=== PATIENT | female | born 1950 | race African-American/Black ===

== ENCOUNTER 2023-02-05 15:08 | Emergency (ER) | payer OTHER, BC ==
[2023-02-05 15:28] VITALS: BP 126/85; PULSE 69; RESP 20; TEMP 98.5; BMI 22.7
[2023-02-05 16:23] LABS: HEMATOCRIT 41.4 % (32.4-45.2); HEMOGLOBIN 13.7 G/dL (10.7-15.3); MCH 31.2 pg (25.7-33.7); MEAN CELL VOLUME 94.5 fl (80-96); MEAN PLT VOLUME 7.8 fl (7.5-11.1); RBC 4.38 10^6/uL (3.60-5.2); RDW 14.3 % (11.6-15.6); WHITE BLOOD COUNT 3.9 10^3/uL (4.0-10.8)
[2023-02-05 16:36] LABS: ALBUMIN 3.8 g/dl (3.4-5.0); CALCIUM 9.7 mg/dl (8.5-10); POTASSIUM 3.8 mmol/L (3.5-5.1); TOT PROT 6.3 g/dl (6.4-8.2)
[2023-02-05] MEDS ORDERED: ASPIRIN 81 MG CHEWABLE TABLETS PO ONE (17:29)
[2023-02-05] MEDS ORDERED: ASPIRIN 81 MG CHEWABLE TABLETS ONE (17:49)
[2023-02-05 19:13] LABS: COCAINE, UR NEGATIVE (NEGATIVE); METHADONE, UR NEGATIVE (NEGATIVE); OPIATES, URI NEGATIVE (NEGATIVE); PHENCYCLIDINE,URINE NEGATIVE (NEGATIVE); URINE AMPHETAMINES NEGATIVE (NEGATIVE); URINE BARBITURATES NEGATIVE (NEGATIVE); URINE BENZODIAZEPINES NEGATIVE (NEGATIVE)
== END 2023-02-05 18:01 | disposition home or self-care (01) ==
LOC: FER 15:08
DX: G45.4 Transient global amnesia (principal)
CPT/HCPCS: 36415; 70450-TC; 80053; 80307; 81003; 85027; 87086; 99284-25